=== PATIENT | female | born 1940 | race Caucasian/White ===

== ENCOUNTER 2020-04-24 15:11 | Emergency (ER) | payer OTHER ==
[~2020-04-24] VITALS: Ht 160 cm; Wt 65.8 kg
[2020-04-24 15:14] VITALS: BP_SYST 144
--- NOTE | 2020-04-24 15:14 | NUR ---
Patient to ER bed 6 to gown for evaluation. Side rails up. Assumed care of pt.
--- NOTE | 2020-04-24 15:15 | NUR ---
PT BIBA C/O HAVING PARKINSONS AND WORSENING TREMORS TODAY. PT IS AAO THAT HER "FEET WON'T STOP MOVING." V/S STABLE.
--- NOTE | 2020-04-24 15:40 | NUR ---
ER Dr. Carpenter at bedside examining patient.
--- NOTE | 2020-04-24 15:45 | NUR ---
SON MARLO CALLED TO INFORM [facility] THAT PT DOES NOT IN FACT HAVE PARKINSONS AND DR. ZAZUETA WAS MADE AWARE.
[2020-04-24] MEDS ORDERED: LORazepam 2 MG/ML VIAL IVP ONE (16:00)
[2020-04-24] MEDS ORDERED: NS 500 ML IV ONE (16:00)
--- NOTE | 2020-04-24 16:15 | NUR ---
PORTABLE CXR DONE AT BEDSIDE
[2020-04-24 16:27] LABS: BASOPHILS % (AUTO) 0.5 % (0.0-2.0); HEMATOCRIT 39.5 % (36-48); HEMOGLOBIN 12.8 g/dL (12.0-16.0); LYMPHOCYTES # (AUTO) 0.4 K/uL (1.0-5.5); LYMPHOCYTES % (AUTO) 3.4 % (20.5-51.5); MEAN CORPUSCULAR HEMOGLOBIN 29 pg (27-31); MEAN CORPUSCULAR HGB CONC 33 % (32-36); MEAN CORPUSCULAR VOLUME 88 fL (79.0-98.0); MONOCYTES # (AUTO) 0.5 K/uL (0.0-1.0); MONOCYTES % (AUTO) 4.5 % (1.7-9.3); NEUTROPHILS # (AUTO) 9.8 K/uL (1.8-7.7); NEUTROPHILS % (AUTO) 91.6 % (40.0-70.0); PLATELET COUNT (AUTO) 233 K/uL (130-430); RED BLOOD CELL COUNT(AUTO) 4.49 MIL/uL (4.2-6.2); RED CELL DISTRIBUTION WIDTH 13.8 % (9.0-15.0); WHITE BLOOD COUNT (AUTO) 10.7 K/uL (4.8-10.8)
[2020-04-24] MEDS ORDERED: LORazepam 2 MG/ML VIAL ONE (16:32)
[2020-04-24 16:37] LABS: ANION GAP 10 (5-15); CALCIUM 9.5 mg/dL (8.4-11.0); CHLORIDE 110 mmol/L (98-107); CREATININE 1.04 mg/dL (0.55-1.30); GLUCOSE 132 mg/dL (70-99); POTASSIUM 3.9 mmol/L (3.5-5.1); SODIUM SERUM 145 mmol/L (136-145); UREA NITROGEN, BLOOD 31 mg/dL (8-21)
[2020-04-24 16:41] LABS: PROTHROMBIN TIME 10.1 SECS (9.5-12.5)
[2020-04-24 16:45] LABS: ALANINE AMINOTRANSFERASE 25 U/L (12-78); ASPARTATE AMINOTRANSFERASE 18 U/L (10-37); TOTAL BILIRUBIN 0.7 mg/dL (0.0-1.0)
[2020-04-24 16:45] LABS: BILIRUBIN,URINE NEGATIVE (NEGATIVE); BLOOD, URINE NEGATIVE (NEGATIVE); CLARITY/URINE CLEAR (CLEAR); COLOR,URINE YELLOW (YELLOW); GLUCOSE,URINE NEGATIVE (NEGATIVE); KETONES,URINE 1+ (NEGATIVE); LEUKOCYTE ESTERASE ,URINE NEGATIVE (NEGATIVE); NITRITE, URINE NEGATIVE (NEGATIVE); PROTEIN URINE TRACE (NEGATIVE); UROBILINOGEN,URINE 0.2 (0.2-1.0)
--- NOTE | 2020-04-24 16:45 | NUR ---
PT RESTING COMFORTABLY AT THIS TIME, NO LONGER SHAKING.
[2020-04-24 16:46] LABS: ALBUMIN 3.7 g/dL (3.4-4.8)
--- NOTE | 2020-04-24 17:10 | NUR ---
DR. ZAZUETA AT BEDSIDE TO RE-EVALUATE PT STATUS.
[2020-04-24 17:25] VITALS: BP_SYST 126
--- NOTE | 2020-04-24 17:30 | NUR ---
Patient given written and verbal discharge instructions and verbalizes understanding. Dr. Jayden SWAIN MD discussed with patient the results and treatment provided. Patient in stable condition. ID arm band removed. IV catheter removed intact and dressing applied, no active bleeding. Rx of Ativan given. Patient educated on pain management and to follow up with PMD. Pain Scale 0/10. Opportunity for questions provided and answered. Medication side effect fact sheet provided.
== END 2020-04-24 17:30 | disposition home or self-care (01) ==
LOC: SED 15:11
DX: G20 Parkinson's disease (principal); J44.9 Chronic obstructive pulmonary disease, unspecified; I10 Essential (primary) hypertension; K58.9 Irritable bowel syndrome, unspecified; Z88.1 Allergy status to other antibiotic agents
CPT/HCPCS: 36415; 71045; 80053; 81003; 83605; 84484; 85025; 85610; 85730; 87040; 87086; 93005; 96374; 99285; J2060; J7030

== ENCOUNTER 2020-06-05 08:48 | Emergency (ER) | payer OTHER, SELFPAY ==
[~2020-06-05] VITALS: Ht 162.6 cm; Wt 63.5 kg
[2020-06-05 08:48] VITALS: BP_SYST 151
--- NOTE | 2020-06-05 08:48 | NUR ---
Patient triaged and kept on ambulance gurney. VSS and patient appears in no acute distress at this time. Accompanied by manufacturing baker, awaiting available bed, and MD notified of need for MSE.
[2020-06-05 09:47] LABS: BASOPHILS % (AUTO) 0.5 % (0.0-2.0); EOSINOPHILS % (AUTO) 0.4 % (0.0-4.0); HEMATOCRIT 38.9 % (36-48); HEMOGLOBIN 12.8 g/dL (12.0-16.0); LYMPHOCYTES # (AUTO) 0.7 K/uL (1.0-5.5); LYMPHOCYTES % (AUTO) 15.4 % (20.5-51.5); MEAN CORPUSCULAR HEMOGLOBIN 29 pg (27-31); MEAN CORPUSCULAR HGB CONC 33 % (32-36); MEAN CORPUSCULAR VOLUME 89 fL (79.0-98.0); MONOCYTES # (AUTO) 0.3 K/uL (0.0-1.0); MONOCYTES % (AUTO) 6.7 % (1.7-9.3); NEUTROPHILS # (AUTO) 3.7 K/uL (1.8-7.7); PLATELET COUNT (AUTO) 221 K/uL (130-430); RED BLOOD CELL COUNT(AUTO) 4.38 MIL/uL (4.2-6.2); RED CELL DISTRIBUTION WIDTH 14.5 % (9.0-15.0); WHITE BLOOD COUNT (AUTO) 4.8 K/uL (4.8-10.8)
[2020-06-05 09:48] LABS: ANION GAP 10 (5-15); CALCIUM 9.6 mg/dL (8.4-11.0); CHLORIDE 108 mmol/L (98-107); CREATININE 0.85 mg/dL (0.55-1.30); GLUCOSE 116 mg/dL (70-99); POTASSIUM 3.8 mmol/L (3.5-5.1); SODIUM SERUM 143 mmol/L (136-145); UREA NITROGEN, BLOOD 30 mg/dL (8-21)
[2020-06-05 09:54] LABS: CHOLESTEROL 229 mg/dL (<200); HDL CHOLESTEROL 93 mg/dL (>55); LDL CHOLESTEROL 126 mg/dL (<100); TRIGLYCERIDES 47 mg/dL (30-150)
[2020-06-05 10:02] LABS: ALANINE AMINOTRANSFERASE 28 U/L (12-78); ALBUMIN 3.5 g/dL (3.4-4.8); ASPARTATE AMINOTRANSFERASE 18 U/L (10-37); TOTAL BILIRUBIN 0.8 mg/dL (0.0-1.0)
[2020-06-05 10:05] LABS: ACETAMINOPHEN < 1 ug/mL (1-30); ALCOHOL, BLOOD < 3 mg/dL (<10)
--- NOTE | 2020-06-05 13:22 | NUR ---
PT PLACED IN BED 1, ATTACHED TO MONITOR. SIDE RAILS UP.
--- NOTE | 2020-06-05 13:32 | NUR ---
PT ALERT BUT CONFUSED FROM HOME C/O ANXIETY AND UPON ARRIVAL REPORTED FEELING SUICIDAL. PT VS STABLE. PT IN NO APPARENT DISTRESS AT THIS TIME.
--- NOTE | 2020-06-05 14:32 | NUR ---
TELEMEDICINE ORDERED FOR PSYCH CONSULT.
--- NOTE | 2020-06-05 15:18 | NUR ---
PT HAD PSYCHIATRIC CONSULT AND RECOMMENDED PSYCH PLACEMENT. PT AWAITING DISPOSITION. DR. BAIG AWARE.
--- NOTE | 2020-06-05 15:20 | NUR ---
PT TO BE EVALUATED BY PET TEAM OR PSYCH OSIEL. PT REPORTS DEPRESSION, ANXIETY, AND FEELING HOPELESS. PT REPORTS HISTORY OF FEELING SUICIDAL BUT DENIES IT AT THIS TIME. PT REPORTS HISTORY ONLY AND THAT SHE DOES NOT KNOW WHAT SHE WANTS. PT REPORTS THAT SHE "JUST FEELS SAD AND HOPELESS." PT HAS NO PLAN AND NO INTENT CURRENTLY AND REPORTS SHE JUST WANTS HELP TO GET BETTER. PT CALM AND COOPERATIVE AND FOLLOWS COMMANDS.
[2020-06-05 15:36] LABS: BILIRUBIN,URINE NEGATIVE (NEGATIVE); BLOOD, URINE NEGATIVE (NEGATIVE); CLARITY/URINE CLEAR (CLEAR); COLOR,URINE YELLOW (YELLOW); GLUCOSE,URINE NEGATIVE (NEGATIVE); KETONES,URINE TRACE (NEGATIVE); LEUKOCYTE ESTERASE ,URINE NEGATIVE (NEGATIVE); NITRITE, URINE NEGATIVE (NEGATIVE); PH,URINE 5.5 (5.0-8.0); PROTEIN URINE NEGATIVE (NEGATIVE); UROBILINOGEN,URINE 0.2 (0.2-1.0)
[2020-06-05 15:55] LABS: BARBITURATE, URINE NEGATIVE (NEG <=200); BENZODIAZEPINE, URINE POSITIVE (NEG <=150); CANNABINOID, URINE NEGATIVE (NEG <=50); COCAINE, URINE NEGATIVE (NEG <=150); METHAMPHETAMINES SCREEN,URINE NEGATIVE (NEG <=500); OPIATE, URINE NEGATIVE (NEG <=100); PHENCYCLIDINE SCREEN,URINE NEGATIVE (NEG <=25); UR TRICYCLIC ANTIDEPRESSANTS NEGATIVE (NEG <=300); URINE AMPHETAMINE NEGATIVE (NEG <=500); URINE METHADONE NEGATIVE (NEG <=200); URINE OXYCODONE SCREEN NEGATIVE (NEG <=100); URINE PROPOXYPHENE SCREEN NEGATIVE (NEG <=300)
--- NOTE | 2020-06-05 16:00 | NUR ---
SPOKE WITH DR. CHE REGARDING PT MENTAL HEALTH. INFORMED DR. BAIG AND DR. ANAYA TO COME IN TO WRITE 5150 HOLD.
--- NOTE | 2020-06-05 18:00 | NUR ---
PT IS RESTING QUIETLY, SPOUSE CAME BY FOR UPDATE. WAITING FOR PET TEAM OR PSYCHIATRY TO PLACE PT ON 5150 HOLD.
--- NOTE | 2020-06-05 20:00 | NUR ---
PT ATE DINNER TRAY AND TOLERATED PO WELL. PT RESTING QUIETLY IN NO DISTRESS.
--- NOTE | 2020-06-05 22:00 | NUR ---
PT DRANK A FEW SIPS OF ICE WATER AND THEN WENT BACK TO SLEEP. PT AWAITS PSYCH/PET TEAM TO EVALUATE HER FOR POSSIBLE PLACEMENT.
[2020-06-05] MEDS ORDERED: QUEtiapine FUMARATE 25 MG TABLET PO ONE (23:30)
[2020-06-06] MEDS ORDERED: QUEtiapine FUMARATE 25 MG TABLET ONE (00:01)
--- NOTE | 2020-06-06 00:45 | NUR ---
PT SLEEPING AT THIS TIME IN NO ACUTE DISTRESS. V/S STABLE.
--- NOTE | 2020-06-06 01:21 | NUR ---
REPORT TO ALCON WHO WILL ASSUME CARE.
--- NOTE | 2020-06-06 03:15 | NUR ---
Pt resting in ED bed comfortably. Offered water, ice chips, warm blanket. Pt denies any new complaints. cooperative and calm.
--- NOTE | 2020-06-06 04:41 | NUR ---
Pt resting in ED bed comfortably. Offered water, ice chips, warm blanket. Pt denies any new complaints. cooperative and calm.
--- NOTE | 2020-06-06 05:36 | NUR ---
Pt resting in ED bed comfortably. Offered water, ice chips, warm blanket. Pt denies any new complaints. cooperative and calm.
--- NOTE | 2020-06-06 06:55 | NUR ---
Pt resting in ED bed comfortably. Offered water, ice chips, warm blanket. Pt denies any new complaints. cooperative and calm.
--- NOTE | 2020-06-06 07:13 | NUR ---
Spoke to Son of patient, Álvaro Case III. He states he was wanted to see if his mother could come home, as he thinks she just had a "Bad day" and hopes that the psych eval results in her coming home. he states that she was stressed, and did not mean what she said earlier.States she has no history of same.
--- NOTE | 2020-06-06 07:17 | NUR ---
Dr. Welsh at bedside examining patient.
--- NOTE | 2020-06-06 08:51 | NUR ---
calling to update no need of pet team. spoke to kandy
[2020-06-06 09:40] VITALS: BP_SYST 145
--- NOTE | 2020-06-06 10:02 | NUR ---
Called pt's Álvaro [phone] for patient to be pick and shovel man, per he will be here in couple minutes.
--- NOTE | 2020-06-06 10:10 | NUR ---
Patient given written and verbal discharge instructions and verbalizes understanding. ER MD discussed with patient the results and treatment provided. Patient in stable condition. ID arm band removed. Patient educated on pain management and to follow up with PMD. Pain Scale 0. Opportunity for questions provided and answered. Medication side effect fact sheet provided.
== END 2020-06-06 10:10 | disposition home or self-care (01) ==
LOC: SED 08:48
DX: R45.851 Suicidal ideations (principal); J44.9 Chronic obstructive pulmonary disease, unspecified; I10 Essential (primary) hypertension; Z88.1 Allergy status to other antibiotic agents; Z20.828 Contact with and (suspected) exposure to other viral communicable diseases
CPT/HCPCS: 80053; 80061; 80307; 81003; 83036; 85025; 87081; 99285; C9803; G0480; G0481; G0482; U0003

== ENCOUNTER 2021-09-21 12:52 | Emergency (ER) | payer OTHER, SELFPAY ==
[~2021-09-21] VITALS: Ht 160 cm; Wt 56.7 kg
[2021-09-21 12:59] VITALS: BP_SYST 191
--- NOTE | 2021-09-21 12:59 | NUR ---
Patient to ER bed 2 to evaluation. Assumed care.
--- NOTE | 2021-09-21 13:00 | NUR ---
Pt. bib BLS with a laceration above left eye post a slip and fall in kitchen, denies LOC, stated just slipped while making coffee, has pain to neck 5/10, lacertion not actively bleeding
--- NOTE | 2021-09-21 13:44 | NUR ---
Pts. son [phone]
--- NOTE | 2021-09-21 13:59 | NUR ---
wound cleaned with sterile water, pt. cont. to c/o neck pain 03/25.
--- NOTE | 2021-09-21 14:14 | NUR ---
ER at bedside examining patient.
--- NOTE | 2021-09-21 15:17 | NUR ---
Patient transported to radiology via gurney, accompanied by staff.
[2021-09-21] MEDS ORDERED: IOHEXOL 350 mgI/mL, 150 ML INFUS..BTL IV ONE (15:18)
--- NOTE | 2021-09-21 15:40 | NUR ---
C Collar placed on
[2021-09-21] MEDS ORDERED: LORazepam 1 MG TABLET ONE (15:42)
[2021-09-21] MEDS ORDERED: LORazepam 1 MG TABLET PO ONE (15:45)
[2021-09-21] MEDS ORDERED: MORPHINE 2 MG/ML INJ. SYRINGE IVP ONE (16:00)
--- NOTE | 2021-09-21 17:02 | NUR ---
Pt. aware need to attempt CT scan again, awaitting radiology for repeat
--- NOTE | 2021-09-21 17:43 | NUR ---
bruising around eye area now present
--- NOTE | 2021-09-21 18:00 | NUR ---
pt. back from CT, able to complete scan
--- NOTE | 2021-09-21 18:18 | NUR ---
radiology at bedside for chest xray
--- NOTE | 2021-09-21 18:34 | NUR ---
lab at bedside
--- NOTE | 2021-09-21 18:43 | NUR ---
Dr. Vo at [facility] is accepting care
[2021-09-21 18:45] LABS: BASOPHILS % (AUTO) 0.2 % (0.0-2.0); EOSINOPHILS % (AUTO) 0.1 % (0.0-4.0); HEMATOCRIT 34.8 % (36-48); HEMOGLOBIN 11.4 g/dL (12.0-16.0); LYMPHOCYTES # (AUTO) 0.5 K/uL (1.0-5.5); LYMPHOCYTES % (AUTO) 6.3 % (20.5-51.5); MEAN CORPUSCULAR HEMOGLOBIN 29 pg (27-31); MEAN CORPUSCULAR HGB CONC 33 % (32-36); MEAN CORPUSCULAR VOLUME 87 fL (79.0-98.0); MONOCYTES # (AUTO) 0.4 K/uL (0.0-1.0); MONOCYTES % (AUTO) 4.8 % (1.7-9.3); NEUTROPHILS # (AUTO) 6.4 K/uL (1.8-7.7); NEUTROPHILS % (AUTO) 88.6 % (40.0-70.0); PLATELET COUNT (AUTO) 222 K/uL (130-430); RED BLOOD CELL COUNT(AUTO) 3.98 MIL/uL (4.2-6.2); RED CELL DISTRIBUTION WIDTH 14.3 % (9.0-15.0); WHITE BLOOD COUNT (AUTO) 7.3 K/uL (4.8-10.8)
--- NOTE | 2021-09-21 18:46 | NUR ---
Pt. remains in clothes from home has refused to change into a hospital gown, informed her of transfer to [facility] pt. still wants to keep her own clothes on; attempted to call son to update him on transfer no answer at this time
[2021-09-21 19:13] LABS: ANION GAP 6 (5-15); CALCIUM 9.6 mg/dL (8.4-11.0); CHLORIDE 107 mmol/L (98-107); CREATININE 0.72 mg/dL (0.55-1.30); GLUCOSE 129 mg/dL (70-99); POTASSIUM 3.7 mmol/L (3.5-5.1); SODIUM SERUM 140 mmol/L (136-145); UREA NITROGEN, BLOOD 26 mg/dL (8-21)
[2021-09-21 19:19] LABS: ALANINE AMINOTRANSFERASE 28 U/L (12-78); ALBUMIN 3.2 g/dL (3.4-4.8); ASPARTATE AMINOTRANSFERASE 18 U/L (10-37); TOTAL BILIRUBIN 0.4 mg/dL (0.0-1.0)
--- NOTE | 2021-09-21 19:24 | NUR ---
UPDATE GIVEN TO PTS. SON
[2021-09-21 19:34] LABS: INR 0.9 (0.8-1.2); PROTHROMBIN TIME 9.7 SECS (9.5-12.5)
--- NOTE | 2021-09-21 21:45 | NUR ---
[facility] on scene, report given to lead [employer]. patient informed of transfer to [facility]. Patient verbalized understanding and reason for transfer.
--- NOTE | 2021-09-21 22:00 | NUR ---
Report called and given to Esther SMITH at [facility] [phone].
[2021-09-21 22:21] VITALS: BP_SYST 167
== END 2021-09-21 22:00 | disposition short-term general hospital (02) ==
LOC: SED 12:52
DX: S12.000A Unspecified displaced fracture of first cervical vertebra, initial encounter for closed fracture (principal); S00.81XA Abrasion of other part of head, initial encounter; S09.90XA Unspecified injury of head, initial encounter; I10 Essential (primary) hypertension; J44.9 Chronic obstructive pulmonary disease, unspecified; Z88.1 Allergy status to other antibiotic agents; Z20.822 Contact with and (suspected) exposure to COVID-19; W01.198A Fall on same level from slipping, tripping and stumbling with subsequent striking against other object, initial encounter; Y93.89 Activity, other specified; Y92.89 Other specified places as the place of occurrence of the external cause; Y99.8 Other external cause status
CPT/HCPCS: 36415; 70450; 71045; 72125; 76376; 80053; 85025; 85610; 85730; 86900; 86901; 87426; 96374; 99291; J2270; Q9967